=== PATIENT | female | born 1990 ===

== ENCOUNTER 2019-01-23 12:56 | Emergency (ER) | payer MEDICAID ==
--- NOTE | 2019-01-23 13:26 | C.PDOC ---
History Of Present Illness 28 year old female with no pertinent medical problems presents to the ED complaining of left foot swelling for 4 days. Reports that every late spring/early summer she gets swelling in the same foot. Denies any injury or trauma. 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 Reports she took Lasix with no relief. Patient was seen by PMD 3 days ago and bloodwork was normal. PMD said he does not understand the swelling. Patient also reports she was taking Phentermine for one year and stopped 3 days ago. Notes the swelling went down but now she has pain to her left calf which prompted ED visit. Denies any recent travels, dizziness, syncope, chest pain, nausea, vomiting, diarrhea, or any other symptoms. Time Seen by Provider: 01/23/19 13:03 Chief Complaint (Nursing): Lower Extremity Problem/Injury History Per: Patient History/Exam Limitations: no limitations Onset/Duration Of Symptoms: Days Current Symptoms Are (Timing): Still Present Past Medical History Reviewed: Historical Data, Nursing Documentation, Vital Signs - Medical History PMH: No Chronic Diseases Surgical History: No Surg Hx Family History: States: No Known Family Hx Review Of Systems Except As Marked, All Systems Reviewed And Found Negative. Constitutional: Negative for: Fever, Chills Cardiovascular: Negative for: Chest Pain Respiratory: Negative for: Shortness of Breath Gastrointestinal: Negative for: Nausea, Vomiting Musculoskeletal: Positive for: Other (left foot swelling ) Neurological: Negative for: Dizziness, Other (syncope ) Physical Exam - Physical Exam Appears: Non-toxic, No Acute Distress Skin: Warm, Dry Head: Normacephalic Eye(s): bilateral: PERRL, EOMI Oral Mucosa: Moist Neck: Supple Chest: Symmetrical Cardiovascular: Rhythm Regular, No Murmur Respiratory: No Rales, No Rhonchi, No Wheezing, Other (Good air movement, Lungs CTA bilaterally) Extremity: Normal ROM, No Tenderness ( no tenderness to left foot or left ankle), Calf Tenderness (tenderness to left medial calf ), Swelling (mild to moderate swelling of left foot ) Extremity: Bilateral: Normal Color And Temperature, Normal ROM Pulses: Left Dorsalis Pedis: Normal, Right Dorsalis Pedis: Normal Neurological/Psych: Oriented x3, Normal Speech, Normal Motor, Normal Sensation, Other (GCS 15, CN 2-12 intact,5/5 muscle strength) Gait: Steady Medical Decision Making Medical Decision Making: Plan - Venous Duplex Scan Left extremity Duplex is negative. Instructed to follow up with Criminal Judge. Instructed to immediately return to the ER including: worsening in current symptoms and/or new, continued, or concerning symptoms. Pt understood and agree d. Disposition Counseled Patient/Family Regarding: Studies Performed, Diagnosis, Need For Followup - Disposition Referrals: Herbie Meyer MD [Medical Doctor] - Disposition Time: 14:45 Condition: STABLE Instructions: Dependent Edema (DC) Forms: [facility] (Armenian), General Discharge Instructions - Clinical Impression Clinical Impression: Leg pain, Dependent edema - Scribe Statement The provider has reviewed the documentation as recorded by the Scribe Gabriela Kaufman All medical record entries made by the Scribe were at my direction and personally dictated by me. I have reviewed the chart and agree that the record accurately reflects my personal performance of the history, physical exam, medical decision making, and the department course for this patient. I have also personally directed, reviewed, and agree with the discharge instructions and disposition.
[2019-01-23 13:30] VITALS: O2SAT 100
[2019-01-23 14:58] VITALS: BP 125/84; PULSE 80; RESP 16; TEMP 98.9
--- NOTE | 2019-01-26 09:31 | VASCLAB ---
Date of service: 01/23/2019 PROCEDURE: Left Lower Extremity Venous Duplex Exam. HISTORY: pain/swelling PRIORS: None. TECHNIQUE: Left common femoral, femoral, popliteal and posterior tibial, peroneal and great saphenous veins were evaluated. Flow was assessed with color Doppler, compressibility, assessment of phasic flow and augmentation response. Report prepared by NYDIA Lim, RVT FINDINGS: LEFT: 1. Common Femoral Vein: 1.1. Compressibility - Fully compressible: Thrombus - None : Flow - Phasic: Augmentation -Normal: Reflux - None. 2. Femoral Vein: 2.1. Compressibility - Fully compressible: Thrombus - None: Flow - Phasic: Augmentation -Normal: Reflux - None. 3. Popliteal Vein: 3.1. Compressibility - Fully compressible: Thrombus - None: Flow - Phasic: Augmentation -Normal: Reflux - None. 4. Posterior Tibial Vein: 4.1. Compressibility - Fully compressible: Thrombus - None: Flow - Phasic: Augmentation -Normal: Reflux - None. 5. Peroneal Vein: 5.1. Compressibility - Fully compressible: Thrombus - None: Flow - Phasic: Augmentation -Normal: Reflux - None. 6. Great Saphenous Vein: 6.1. Compressibility - Fully compressible: Thrombus - None: Flow - Phasic: Augmentation - Normal: Reflux - None. OTHER FINDINGS: IMPRESSION: No evidence of deep or superficial vein thrombosis of the left lower extremity with excellent venous flow. Normal valve function noted of the left side. Normal venous flow noted in the right common femoral vein.
== END 2019-01-23 14:58 | disposition home or self-care (01) ==
LOC: C.ER 12:56
DX: M79.662 Pain in left lower leg (principal); R60.0 Localized edema